=== PATIENT | male | born 1955 | race Caucasian/White ===

== ENCOUNTER 2024-10-31 14:56 | Emergency (ER) | payer MEDICARE, OTHER ==
[2024-10-31] MEDS: Iopamidol 755 Mg/ML 100 ML Bottle IVPUSH ONE (15:39)
[2024-10-31] MEDS: Sodium Chloride 0.9% 100 ML IV SCH (15:39)
[2024-10-31] MEDS: Sodium Chloride 0.9% 10 ML Syringe FLUSH PRN (15:39)
[2024-10-31 15:43] LABS: BASOPHILS ABSOLUTE AUTO 0.1 K/mm3 (0.0-0.2); BASOPHILS PERCENT AUTO 0.7 % (0.0-1.0); EOSINOPHILS ABSOLUTE AUTO 0.1 K/mm3 (0.0-0.4); EOSINOPHILS PERCENT AUTO 0.6 % (0.0-6.0); HEMATOCRIT 47.4 % (42.0-52.0); HEMOGLOBIN 16.4 gm/dl (14.0-18.0); IMMATURE GRAN ABSOLUTE AUTO 0.03 K/mm3 (0.00-0.05); IMMATURE GRAN PERCENT AUTO 0.3 % (0.0-0.4); LYMPHOCYTES ABSOLUTE AUTO 2.8 K/mm3 (1.0-4.8); LYMPHOCYTES PERCENT AUTO 27.8 % (24.0-44.0); MEAN CORPUSCULAR HEMOGLOBIN 31.5 pg (28.0-32.0); MEAN CORPUSCULAR HGB CONC 34.6 g/dl (32.0-36.0); MEAN CORPUSCULAR VOLUME 91.2 fl (83.0-99.0); MEAN PLATELET VOLUME 8.8 fl (9.4-12.4); MONOCYTES ABSOLUTE AUTO 0.6 K/mm3 (0.0-0.8); MONOCYTES PERCENT AUTO 6.2 % (0.0-8.0); NEUTROPHILS ABSOLUTE AUTO 6.5 K/mm3 (1.8-7.7); NEUTROPHILS PERCENT AUTO 64.4 % (41.0-71.0); PLATELET COUNT,PLT 273 K/mm3 (150-400); WHITE BLOOD CELL COUNT,WBC 10.13 K/mm3 (3.9-11.3)
[2024-10-31 15:48] LABS: INR 1.06; PROTHROMBIN TIME 11.2 SECONDS (9.7-12.0)
[2024-10-31 15:49] LABS: PTT,PARTIAL THROMBOPLSTIN TIME 26.9 SECONDS (21.7-31.4)
[2024-10-31 16:01] LABS: A/G RATIO 1.3 (1-2); ALBUMIN 4.2 g/dl (3.4-5.0); ANION GAP 12.5 (5-15); BILIRUBIN TOTAL 0.8 mg/dL (0.2-1.0); BUN/CREATININE RATIO 14.6 (14-18); CALCIUM 8.9 mg/dL (8.5-10.1); CREATININE 1.3 mg/dL (0.7-1.3); EST CRCL DRUG DOSING (CG) 58.86 mL/min; POTASSIUM,K 3.5 mEq/L (3.5-5.1); PROTEIN TOTAL,TP 7.5 g/dl (6.4-8.2); TSH 1.09 uIU/mL (0.358-3.74)
== END 2024-10-31 18:25 | disposition home or self-care (01) ==
LOC: JD.ED 14:56
DX: R00.2 Palpitations (principal); R41.3 Other amnesia; I10 Essential (primary) hypertension; Z79.82 Long term (current) use of aspirin; Z79.899 Other long term (current) drug therapy
CPT/HCPCS: 36415; 70450; 70496; 70498; 80053; 84443; 84484; 85025; 85610; 85730; 93005; 99285; J3490; Q9967